=== PATIENT | male | born 1985 | race Caucasian/White ===

== ENCOUNTER 2016-06-18 13:03 | Emergency (ER) | payer OTHER ==
[2016-06-18 13:41] VITALS: BP 137/92; PULSE 57; RESP 20; TEMP 99.5
--- NOTE | 2016-06-18 14:07 | ED ---
Recheck HPI - General Chief Complaint: Needlestick/Exposure Stated Complaint: [facility], needlestick Time Seen by Provider: 06/18/16 13:51 Source: patient, RN notes reviewed Mode of arrival: ambulatory Limitations: no limitations - History of Present Illness Initial Comments: 31-year-old male presents emergency Department chief complaint of needle stick. Patient works for security here at the hospital. Patient states he is holding down patient on 3 W. in which the needle fell off the syringe after giving patient in the ingestion and landed on his hand. Patient did not have gloves on is he states there was no time to put them on secondary to the patient 's behavior. Patient states his tetanus is up-to-date. Patient states he merely wash the hand, alcohol on it. - Related Data Home Medications Medication Instructions Recorded Confirmed Famotidine [Pepcid] 4 tab PO BID 01/24/14 07/03/15 [id number] 4 tab PO QID 05/28/15 07/03/15 [Excedrin] Melatonin 1 mg PO HS 05/28/15 07/03/15 Allergies Allergy/AdvReac Type Severity Reaction Status Date / Time No Known Allergies Allergy Verified 07/03/15 16:37 Review of Systems ROS Statement: Those systems with pertinent positive or pertinent negative responses have been documented in the HPI. ROS Other: All systems not noted in ROS Statement are negative. Past Medical History Past Medical History: Chest Pain / Angina, GERD/Reflux, Musculoskeletal Disorder , Seizure Disorder, Sleep Apnea/CPAP/BIPAP Additional Past Medical History / Comment(s): PVC'S, HX BIGEMINY. See Dr Patel H & P. Ruptured Disc. POSS SEIZURES CHILD, BRIEF EPISODES. NO TX FOR SLEEP APNEA. History of Any Multi-Drug Resistant Organisms: None Reported Past Surgical History: Ablation Additional Past Surgical History / Comment(s): LIEN Eye MUSCLE Surgery X2. EXC WISDOM TEETH. EP STUDY W/ CARDIAC ABLATION 2014. Past Anesthesia/Blood Transfusion Reactions: No Reported Reaction Past Psychological History: No Psychological Hx Reported Smoking Status: Current every day smoker Past Alcohol Use History: Rare Additional Past Alcohol Use History / Comment(s): SMOKES X20 YEARS, 1 PPD Past Drug Use History: None Reported - Past Family History Mother Family Medical History: No Reported History General Exam Limitations: no limitations General appearance: alert, in no apparent distress Head exam: Present: atraumatic, normocephalic, normal inspection Respiratory exam: Present: normal lung sounds bilaterally. Absent: respiratory distress, wheezes, rales, rhonchi, stridor Cardiovascular Exam: Present: regular rate, normal rhythm, normal heart sounds. Absent: systolic murmur, diastolic murmur, rubs, gallop, clicks Extremities exam: Present: other (Small superficial puncture wound noted to his left hand just proximal to the fifth MCP) Neurological exam: Present: alert, oriented X3, CN II-XII intact Skin exam: Present: warm, dry, intact, normal color. Absent: rash Course Vital Signs 06/18/16 13:40 Temperature 99.5 F Pulse Rate 57 L Respiratory 20 Rate Blood Pressure 137/92 O2 Sat by Pulse 97 Oximetry Medical Decision Making - Medical Decision Making 31-year-old male presented for needlestick. Patient will have lab testing along with the source. Prophylactic HIV will be given if positive. Disposition Clinical Impression: Needlestick injury accident Disposition: HOME SELF-CARE Condition: Stable Instructions: Needle Stick Injuries (ED) Additional Instructions: Please return to the Emergency Department if symptoms worsen or any other concerns. Time of Disposition: 14:07
[2016-06-18 16:10] LABS: Hepatitis C Virus IgG Index 0.01
[2016-06-18 16:14] LABS: Hepatitis B Surface Antibody POSITIVE (Negative); Hepatitis C Virus IgG Ab Negative (Negative)
[2016-06-20 20:37] LABS: HIV-1/HIV-2 Ab Screen NONREAC (NON REAC)
== END 2016-06-18 14:35 | disposition home or self-care (01) ==
LOC: EC 13:03
DX: S61.432A Puncture wound without foreign body of left hand, initial encounter (principal); K21.9 Gastro-esophageal reflux disease without esophagitis; F17.200 Nicotine dependence, unspecified, uncomplicated; G47.30 Sleep apnea, unspecified; W46.1XXA Contact with contaminated hypodermic needle, initial encounter; Y93.F9 Activity, other caregiving; Y92.239 Unspecified place in hospital as the place of occurrence of the external cause; Z79.82 Long term (current) use of aspirin; Z79.899 Other long term (current) drug therapy
CPT/HCPCS: 36415; 86701; 86704; 86706; 86803; 87340; 87389; 99283

== ENCOUNTER → 2017-11-10 | Outpatient (CLI) | payer OTHER ==
--- NOTE | 2017-11-10 18:54 | XR ---
EXAMINATION TYPE: XR shoulder complete RT DATE OF EXAM: 11/10/2017 COMPARISON: NONE HISTORY: Shoulder pain TECHNIQUE: 3 views FINDINGS: There is no sign of fracture nor dislocation. Joint spaces are normal. Soft tissues appear normal. IMPRESSION: Normal right shoulder.
== END | disposition home or self-care (01) ==
LOC: RADXRMAIN 16:28
PROVIDERS: ATTEND Physician Assistant
DX: M25.511 Pain in right shoulder (principal)

== ENCOUNTER → 2019-01-24 | Outpatient (CLI) | payer OTHER ==
--- NOTE | 2019-01-24 08:31 | CT ---
EXAMINATION TYPE: CT brain wo con DATE OF EXAM: 01/24/2019 COMPARISON: None HISTORY: 34-year-old male with SUERO TECHNIQUE: Examination was done in axial plane without intravenous contrast. Coronal and sagittal r econstructions performed. CT DLP: 1123 mGycm Automated exposure control for dose reduction was used. FINDINGS: There is no evidence of acute intracranial hemorrhage, acute ischemic changes, mass, mass-effect, or extra-axial fluid collection. There is no effacement of cerebral sulci or basal subarachnoid cister ns. There is no hydrocephalus. There is no midline shift. Joya-white matter distinction is preserv ed. Rightward nasal septal deviation. Mucosal thickening left ethmoid air cells and left frontal sinus. M astoid air cells well pneumatized. IMPRESSION: No acute intracranial abnormality seen. Mild chronic ethmoid and frontal sinus disease on the left.
== END | disposition home or self-care (01) ==
LOC: RADCTMAIN 07:26
PROVIDERS: ATTEND Family Medicine
DX: R51 Headache (principal)
CPT/HCPCS: 70450

== ENCOUNTER → 2019-04-18 | Outpatient (CLI) | payer OTHER ==
[2019-04-18 14:48] LABS: HCT 46.7 % (39.0-53.0); HGB 15.4 gm/dL (13.0-17.5); MCH 29.5 pg (25.0-35.0); MCV 89.5 fL (80.0-100.0); Mean Platelet Volume 8.5; Platelet Count 218 k/uL (150-450); RBC 5.21 m/uL (4.30-5.90); RDW 13.1 % (11.5-15.5); WBC 8.1 k/uL (3.8-10.6)
[2019-04-18 18:51] LABS: Albumin 4.6 g/dL (3.80-4.90); Albumin/Globulin Ratio 2.88 (1.60-3.17); Anion Gap 5.8 mmol/L (4.00-12.00); BUN/Creat Ratio 12.73 Ratio (12.00-20.00); Calcium 9.5 mg/dL (8.7-10.3); Carbon Dioxide 27.2 mmol/L (21.6-31.8); Chol/HDL Ratio 5.26; Globulin 1.6 g/dL (1.6-3.3); LDL Cholesterol,Calculated 139.8 mg/dL (0.0-131.0); Non-African American GFR(CKD) 87.1 (60.0-200.0); Total Bilirubin 0.4 mg/dL (0.2-1.2); Total Protein 6.2 g/dL (6.2-8.2); VLDL Calculation 39.2 mg/dL (5.00-40.00)
== END | disposition home or self-care (01) ==
LOC: LABWHC1 13:07
PROVIDERS: ATTEND Family Medicine
DX: Z00.00 Encounter for general adult medical examination without abnormal findings (principal); E29.1 Testicular hypofunction; R41.3 Other amnesia
CPT/HCPCS: 36415; 80053; 80061; 82607; 84402; 84403; 84439; 84443; 84481; 85027

== ENCOUNTER → 2019-05-30 | Outpatient (CLI) | payer OTHER ==
--- NOTE | 2019-05-31 08:14 | MR ---
EXAMINATION TYPE: MR shoulder LT wo con DATE OF EXAM: 05/30/2019 COMPARISON: X-ray 11/10/2017 HISTORY: Lt shoulder pain x 2 years, no trauma TECHNIQUE: Multiplanar, multisequence imaging of the left shoulder is performed without contrast. FINDINGS: Rotator Cuff: There is no evidence of through thickness tear of the visualized rotator cuff tendons. There is increased intrasubstance signal involving the insertion and distal margin of the subscapular is tendon suspicious for partial tear. There is bursal scuffing along the distal margin and insertion of the supraspinatus and anterior fibe rs of the infraspinatus tendons. Acromioclavicular Joint: Type II acromion. This does result in mild mass effect upon the upper margin of the supraspinatus tendon and muscle. Glenohumeral Joint: Joint space preserved. Glenohumeral ligaments intact. Labrum: There is ill-definition the posterior superior labrum suspicious for tear Biceps Tendon: The long head of biceps is in normal location within bicipital groove. Biceps tendon a ppears to be intact to the level the biceps anchor. Intrasubstance signal seen within the bicipital t endon within the rotator interval is suggestive of tendinosis. Bone marrow signal: Benign cystic changes involving the humeral head are noted.. Other: No additional significant abnormality is appreciated. IMPRESSION: 1. Bursal scuffing and tendinosis of the distal margin and insertion of the supraspinatus tendon and anterior fibers of the infraspinatus tendon with no through thickness tear or retraction. Type II acr omion is seen and does appear to be a degree of impingement of the supraspinatus tendon and muscle. 2. Intrasubstance abnormal signal involving the insertion of the subscapularis tendon suspicious for partial tear with no evidence of retraction. 3. Increased signal and ill-definition the posterior superior labrum suspicious for tear.
== END | disposition home or self-care (01) ==
LOC: RADMRIMAIN 17:06
PROVIDERS: ATTEND Orthopaedic Surgery
DX: R93.7 Abnormal findings on diagnostic imaging of other parts of musculoskeletal system (principal); M25.512 Pain in left shoulder

== ENCOUNTER → 2019-06-14 | Outpatient (CLI) | payer OTHER ==
[2019-06-14 17:27] LABS: Basophils # (A) 0.1 k/uL (0-0.2); Basophils % (A) 1 %; Eosinophils # (A) 0.3 k/uL (0-0.7); Eosinophils % (A) 3 %; HCT 49.6 % (39.0-53.0); HGB 16.1 gm/dL (13.0-17.5); Lymphocytes # (A) 3.4 k/uL (1.0-4.8); Lymphocytes % (A) 33 %; MCH 28.2 pg (25.0-35.0); MCHC 32.5 g/dL (31.0-37.0); Mean Platelet Volume 8.1; Monocytes # (A) 0.5 k/uL (0-1.0); Monocytes % (A) 5 %; Neutrophils # (A) 5.9 k/uL (1.3-7.7); Neutrophils % (A) 56 %; Platelet Count 233 k/uL (150-450); RDW 12.9 % (11.5-15.5); WBC 10.5 k/uL (3.8-10.6)
[2019-06-14 17:38] LABS: Potassium 4.7 mmol/L (3.5-5.1)
== END ==
LOC: LABPAT 16:08
PROVIDERS: ATTEND Orthopaedic Surgery
DX: Z01.812 Encounter for preprocedural laboratory examination (principal); M75.42 Impingement syndrome of left shoulder
CPT/HCPCS: 80051; 85025

== ENCOUNTER 2019-07-06 07:51 | Day surgery (SDC) | payer OTHER ==
[2019-07-04 12:58] VITALS: BMI 30.5
--- NOTE | 2019-07-05 21:46 | HP ---
HISTORY AND PHYSICAL REASON FOR ADMISSION: Surgery is scheduled for 07/06/2019 HISTORY OF PRESENT ILLNESS: Osman Richardson is a 34-year-old patient seen with progressive left shoulder pain. We discussed options for treatment. He elected to proceed with left shoulder arthroscopy. Consent regarding the procedure was obtained. PAST MEDICAL HISTORY: Anxiety, hypertension. PAST SURGICAL HISTORY: Cardiac ablation. MEDICATIONS: Famotidine. Testosterone. ALLERGIES: None. SOCIAL HISTORY: Smokes 1 pack of cigarettes daily. PHYSICAL EXAMINATION: Evaluation of the left shoulder, full flexion 140 degrees, abduction 120 degrees, external rotation is 40 degrees with pain, weakness. There is tenderness along the anterior lateral acromion rotator cuff insertion site. Impingement sign is positive at 100. Distal neurovascular exam is intact. RADIOGRAPHS: Radiographs of the left shoulder revealed a lateral downsloping anterior acromion, evidence for moderate to severe acromioclavicular joint osteoarthritis and cystic changes of the greater tuberosity. Left shoulder MRI revealed partial rotator cuff tear. Labral tear and biceps tendinitis. IMPRESSION: 1. Left shoulder impingement with partial rotator cuff tear. 2. Left shoulder labral tear. 3. Left shoulder acromioclavicular joint osteoarthritis. 4. Left shoulder bicipital tendinitis. 5. Tobacco use. PLAN: Left shoulder arthroscopy with subacromial decompression, possible arthroscopic right rotator cuff repair, possible labral repair versus debridement, Zulay procedure and possible biceps tenotomy. Surgery is 07/06/2019. MMODL / IJN: [id number] /
[~2019-07-06 07:51] MED LIST: DEXAMETHASONE SOD PHOSPHATE 10 MG/ML 1 ML VIAL IV ONE; LACTATED RINGERS 1,000 ML IV SCH; LIDOCAINE 1% (10MG/ML) FOR IV START INTRADERMA PRN; MIDAZOLAM 2 MG/2 ML VIAL IV PRN; ONDANSETRON 4 MG/2 ML VIAL IVP ONE; SCOPOLAMINE 1.5MG/72HR PATCH TRANSDERM ONE
[2019-07-06 08:03] VITALS: TEMP 97.1
[2019-07-06] MEDS ORDERED: fentaNYL (PF) 50 MCG/ML 2 ML AMP IV ONE (08:39)
--- NOTE | 2019-07-06 09:04 | P.ANPRN ---
Procedure Note - Anesthesia - Nerve Block Performed Left Interscalene Single Time Out Performed: Yes ([id number]) Date of Procedure: 07/06/19 Procedure Start Time: 08:37 Procedure Stop Time: 08:42 Location of Patient: PreOp Indication: Acute Post-Operative Pain, Requested by Surgeon Specifically requested for management of pain by DrElana: Florencio Villaseñor Sedation Type: Sedate with meaningful contact maintained Preparation: Sterile Prep Position: Supine Catheter: None Needle Types: Pajunk Needle Gauge: 21 Ultrasound used to visualize needle placement: Yes Ultrasound used to observe medication spread: Yes Injectate: 0.5% Ropivacaine (see comment for volume) (30cc) Blood Aspirated: No Pain Paresthesia on Injection Noted: No Resistance on Injection: Normal Image Stored and Saved: Yes Events: Uneventful and Well Tolerated
[2019-07-06] MEDS ORDERED: PROPOFOL 10 MG/ML 20 ML VIAL IV ONE (09:30)
[2019-07-06] MEDS ORDERED: LIDOCAINE 1% INJ 10MG/ML (20 ML MDV) ONE (09:30)
[2019-07-06] MEDS ORDERED: SUCCINYLCHOLINE CHLORIDE 100 MG/5 ML SYR IV ONE (09:30)
[2019-07-06] MEDS ORDERED: fentaNYL (PF) 50 MCG/ML 2 ML AMP ONE (09:30)
[2019-07-06] MEDS ORDERED: ROPIVACAINE 5 MG/ML 30 ML VIAL ONE (09:30)
[2019-07-06] MEDS ORDERED: LACTATED RINGERS 1,000 ML IV ONE (10:20)
--- NOTE | 2019-07-06 11:09 | P.OP ---
Date of Procedure: 07/06/19 Preoperative Diagnosis: Left shoulder impingement Postoperative Diagnosis: 1. Left shoulder rotator cuff tear 2. Left shoulder impingement 3. Left shoulder acromioclavicular joint osteoarthritis 4. Left shoulder partial long head biceps tendon tear Procedure(s) Performed: 1. Left shoulder arthroscopic rotator cuff repair 2. Left shoulder arthroscopic subacromial decompression 3. Left shoulder arthroscopic Zulay procedure 4. Left shoulder arthroscopic biceps tenotomy Implants: 14.75 Arthrex swivel lock anchor Anesthesia: GETA, regional (Interscalene block) Surgeon: Florencio Villaseñor Rn Psychiatric #1: Fidel Saxena Estimated Blood Loss (ml): 11 Pathology: none sent Condition: stable Disposition: PACU Indications for Procedure: 34-year-old patient seen with progressive left shoulder pain. After treatment options were discussed, he elected to proceed with arthroscopy. Operative Findings: See description of procedure Description of Procedure: Patient underwent an interscalene block by department of anesthesia. The patient was then taken to the operative suite. The patient underwent a general anesthetic by the department of anesthesia. The patient was placed into a lateral position and secured. There was appropriate padding of the bony prominence. Left shoulder was then prepped and draped in normal sterile orthopedic fashion. We placed the extremity in 10 pounds of longitudinal traction. A posterior incision was now made for a posterior working portal site. The trocar and cannula were inserted into the glenohumeral joint. Arthroscopy w as initiated. Spinal needle was now inserted anteriorly, to ascertain the anterior working portal site. An incision was now made in that area, a trocar was inserted followed by a probe. There was some mild fraying of the anterior labrum. There was no significant chondromalacia present. There was some hyperemia partial tearing long head biceps tendon along the area of the anchor. I performed arthroscopic biceps tenotomy. The residual labrum was again noted to be stable. Instruments now removed from glenohumeral joint. Utilizing the posterior working portal site, the trocar and cannula were inserted into the subacromial space. Arthroscopy initiated. I made an incision 2 fingerbreadths lateral to the acromion. I introduced my trocar followed by my ArthroCare ablator. I now began ablating thick subacromial bursal tissue, which exposed the undersurface of the anterior acromion. There was diminished subacromial space. There was a very prominent anterior acromion. A motorized bur was introduced and a subacromial decompression was performed. I also excised some osteophytes off the inferior aspect of the distal clavicle. The AC joint was visualized and noted to be fairly arthritic. The motorized bur was introduced in the anterior portal site and a Zulay procedure was performed without difficulty, decompressing the AC joint nicely. I turned my attention to the rotator cuff. There was some partial tearing noted along the mid body distal supraspinatus. I probed the area and noted a full-thickness perforation. I used the motorized shaver and debrided the margins gained down to stable tendon tissue. The defect measured 11.5 cm and was freely mobile over the footprint. I abraded the footprint with a motorized bur. With the assistance of Chau HUITRON we passed 2 everted mattress sutures through good bites of rotator cuff tendon. I now punched a hole centrally in the abraded footprint area for insertion of an anchor. We now passed all 4 suture limbs through the eyelet of a 4.75 Arthrex a lock anchor. We now introduced at eyelet into our pre-punch hole. Chau HUITRON tension all 4 suture limbs around the plate anchor noting good fixation. All residual suture limbs were now clipped. We had good compression of the tendon along the entire footprint. I injected 1 mL Renyte intra-articular. Instruments now removed from the portal sites. All portal sites were approximated with nylon suture. Sterile dressings were applied followed by a shoulder immobilizer. Fidel HUITRON assisted in this complex case. The patient was awakened, transferred to a bed, and taken to recovery in stable condition.
[2019-07-06 12:13] VITALS: BP 166/88; PULSE 88; RESP 16
== END 2019-07-06 12:45 | disposition home or self-care (01) ==
LOC: OR 07:51
PROVIDERS: ATTEND Orthopaedic Surgery
DX: M75.102 Unspecified rotator cuff tear or rupture of left shoulder, not specified as traumatic (principal); M19.012 Primary osteoarthritis, left shoulder; S46.112A Strain of muscle, fascia and tendon of long head of biceps, left arm, initial encounter; X58.XXXA Exposure to other specified factors, initial encounter; M25.712 Osteophyte, left shoulder; I10 Essential (primary) hypertension; F41.9 Anxiety disorder, unspecified; F17.210 Nicotine dependence, cigarettes, uncomplicated; G47.33 Obstructive sleep apnea (adult) (pediatric); K21.9 Gastro-esophageal reflux disease without esophagitis; Z79.82 Long term (current) use of aspirin; Z79.890 Hormone replacement therapy; Z79.899 Other long term (current) drug therapy
CPT/HCPCS: 64415; 76942; 29826; 29827; 29824; C1713; Q4212; J2250; J1100; J0690; J2405; J2001; J3010; J2795; J0330; J2704

== ENCOUNTER → 2021-10-01 | Outpatient (CLI) | payer OTHER ==
--- NOTE | 2021-10-01 16:43 | XR ---
EXAMINATION TYPE: XR lumbar spine 2 or 3V DATE OF EXAM: 10/01/2021 COMPARISON: X-ray dated 01/24/2011 INDICATION: Low back pain TECHNIQUE: 3 views of the lumbar spine FINDINGS: Preserved lumbar lordosis. No significant anterolisthesis or retrolisthesis. No definite vertebral alissa dy collapse or acute displaced fracture. Degenerated L5-S1 disc. Questionable bilateral L5-S1 neural foraminal stenosis. Unremarkable sacroili ac joints. IMPRESSION: Degenerative changes at L5-S1 level as described above. Further MRI assessment can be considered if c linically required.
== END | disposition home or self-care (01) ==
LOC: RADXRMAIN 15:55
PROVIDERS: ATTEND Family Medicine
DX: M51.27 Other intervertebral disc displacement, lumbosacral region (principal)
CPT/HCPCS: 72100

== ENCOUNTER → 2021-10-01 | Outpatient (CLI) | payer OTHER ==
[2021-10-01 18:38] LABS: Basophils # (A) 0.04 X 10*3/uL (0.00-0.10); Basophils % (A) 0.6 %; Eosinophils # (A) 0.19 X 10*3/uL (0.04-0.35); Eosinophils % (A) 2.7 %; HCT 50.9 % (39.6-50.0); Immature Grans, Automated 0.7 %; Lymphocytes % (A) 39.3 %; MCH 28.4 pg (27.0-32.0); MCHC 31.4 g/dL (32.0-37.0); MCV 90.2 fL (80.0-97.0); Mean Platelet Volume 10.4 fL (9.5-12.2); Monocytes # (A) 0.64 X 10*3/uL (0.20-1.00); NRBC Per 100 WBC 0 /100 WBCS (0.0-0.0); Neutrophils % (A) 47.7 %; Platelet Count 266 X 10*3/uL (140-440); RBC 5.64 X 10*6/uL (4.40-5.60); RDW 13.2 % (11.5-14.5); WBC 7.12 X 10*3/uL (4.50-10.00)
[2021-10-01 18:45] LABS: ALT 77 U/L (10-49); AST 32 U/L (14-35); African American GFR (CKD) 68.4 (60.0-200.0); Albumin/Globulin Ratio 1.92 (1.60-3.17); Alkaline Phosphatase 121 U/L (41-126); BUN/Creat Ratio 13.47 Ratio (12.00-20.00); Blood Urea Nitrogen 20.2 mg/dL (9.0-27.0); Carbon Dioxide 22.5 mmol/L (20.0-27.5); Chloride 104 mmol/L (96-109); Chol/HDL Ratio 6.67 Ratio; Globulin 2.6 g/dL (1.6-3.3); Glucose 89 mg/dL (70-110); LDL Cholesterol,Calculated 200.6 mg/dL (0.0-131.0); Potassium 5.5 mmol/L (3.5-5.5); Sodium 137 mmol/L (135-145); Total Protein 7.6 g/dL (6.2-8.2)
== END | disposition home or self-care (01) ==
LOC: LABWHC1 10:46
PROVIDERS: ATTEND Family Medicine
DX: Z00.00 Encounter for general adult medical examination without abnormal findings (principal)
CPT/HCPCS: 36415; 80053; 80061; 84439; 84443; 85025